=== PATIENT | female | born 1945 | race Caucasian/White ===

== ENCOUNTER → 2016-10-22 | Outpatient (CLI) | payer MEDICARE, BC ==
--- NOTE | 2016-10-22 12:46 | RADRPT ---
PROCEDURE: Limited x-ray of both lower extremities. CLINICAL INDICATION: Bilateral leg pain. TECHNIQUE: Single frontal view of both lower extremities was obtained from the hips to the calves. COMPARISON: Left knee radiographs dated 09/19/2016. FINDINGS: There are mild degenerative changes of both hips with osteophytes noted. There are moderate to negrita re degenerative changes of both knees with osteophytes, joint space narrowing, and deformity. Right is worse than left. IMPRESSION: 1. Mild degenerative changes of the hips. 2. Moderate to severe degenerative changes of both knees with right worse than left. RPTAT: QQ .Ricardo Osborn MD, MD Date Time Electronically viewed and signed by .Ricardo Osborn MD, MD on 10/22/2016 12:45 .R/
== END | disposition home or self-care (01) ==
LOC: HKI 10:58
PROVIDERS: ATTEND Orthopaedic Surgery
DX: Z01.818 Encounter for other preprocedural examination (principal); M17.11 Unilateral primary osteoarthritis, right knee; M25.561 Pain in right knee
CPT/HCPCS: 77073; 87081; G0463

== ENCOUNTER 2016-10-30 08:25 | Inpatient (IN) | payer MEDICARE, BC ==
[2016-10-29 12:45] VITALS: BMI 26.5
[2016-10-30] VITALS (21 sets, daily range): BP systolic 109–139; BP diastolic 62–89; PULSE 54–85; RESP 10–21; Ht 160 cm; Wt 70.0 kg
[~2016-10-30] VITALS: Ht 160 cm; Wt 70.0 kg
[~2016-10-30 08:25] MED LIST: ETOMIDATE 20 MG INJ ONE
[2016-10-30] MEDS ORDERED: BUPIVACAINE LIPOSOME/PF 266 MG/20 ML VIAL INFIL SCH (11:00)
[2016-10-30] MEDS ORDERED: oxyCODONE (CR) 10 MG TAB [oxyCONTIN] X1 DOSE PO ONE (11:00)
[2016-10-30] MEDS ORDERED: TRANEXAMIC ACID 700 MG in SOD CHLORIDE 0.9% 100 ML IVPB SCH (11:00)
[2016-10-30] MEDS ORDERED: traMADOL 50 MG TAB X 1 DOSE PO ONE (11:00)
[2016-10-30] MEDS ORDERED: CELECOXIB 400 MG PO X1 DOSE PO ONE (11:00)
[2016-10-30] MEDS ORDERED: LACTATED RINGER'S 1,000 ML IV SCH (11:00)
[2016-10-30] MEDS ORDERED: CEFAZOLIN 2GM/50 ML (PMX) 50 ML X1 BEFORE INCISION IVPB ONE (11:00)
[2016-10-30] MEDS ORDERED: EXPAREL NOTE (BUPIVICAINE LIPOSOMAL) XX SCH (11:00)
[2016-10-30] MEDS ORDERED: PAIN COCKTAIL-CEFUROXIME IRR SCH ×7 (11:00)
[2016-10-30] MEDS ORDERED: PREGABALIN 300 MG PO X1 PO ONE (11:00)
[2016-10-30] MEDS: PAIN COCKTAIL - VANCOMYCIN IRR SCH ×14 (12:00→15:08)
[2016-10-30] MEDS ORDERED: VANCOMYCIN 1 GM/NS 250 ML X1 BEFORE INCISION IVPB ONE (12:00)
[2016-10-30] MEDS ORDERED: ONDANSETRON 4 MG INJ ONE (12:26)
[2016-10-30] MEDS ORDERED: ROCURONIUM 50 MG INJ ONE (12:26)
[2016-10-30] MEDS ORDERED: NEOSTIGMINE 3 MG/3 ML SYRINGE ONE (12:26)
[2016-10-30] MEDS ORDERED: MIDAZOLAM 1 MG/ML 2 ML INJ ONE (12:26)
[2016-10-30] MEDS ORDERED: PROPOFOL 100 ML ONE (12:26)
[2016-10-30] MEDS ORDERED: LIDOCAINE 2% (SDV) 5 ML INJ ONE (12:26)
[2016-10-30] MEDS ORDERED: GLYCOPYRROLATE 1 MG INJ ONE (12:26)
[2016-10-30] MEDS ORDERED: DEXAMETHASONE 4 MG/ML 1 ML INJ ONE ×2 (12:26→14:36)
[2016-10-30] MEDS ORDERED: FENTAnyl 50 MCG/ML VIAL ONE (12:26)
[2016-10-30] MEDS ORDERED: OMEP40CA6 PO (12:35)
--- NOTE | 2016-10-30 13:11 | HPN ---
Date/Time of Note Date/Time of Note DATE: 10/30/16 TIME: 13:10 Interval H&P Admission Note Pt. seen H&P reviewed: No system changes No change from H&P on 10/28/16 by GIOVANA Roque MD Oct 30, 2016 13:11
[2016-10-30] MEDS: SOD CHLORIDE 0.9% IV ONE ×2 (13:27→16:18)
[2016-10-30] MEDS: TRANEXAMIC ACID IV ONE ×2 (13:27→16:18)
[2016-10-30] MEDS ORDERED: SODIUM CL BACTERIOSTATIC 30 ML INJ ONE (13:34)
[2016-10-30] MEDS ORDERED: POLYMYXIN B 500000 UNIT INJ ONE (13:34)
[2016-10-30] MEDS ORDERED: VANCOMYCIN 1 GM INJ ONE (13:35)
[2016-10-30] MEDS ORDERED: BACITRACIN 50000 UNITS INJ IRR ONE (14:22)
[2016-10-30] MEDS ORDERED: HYDROmorphONE (0.2 MG/ML) 10ML SYG IV PRN ×3 (14:30)
[2016-10-30] MEDS ORDERED: DIPHENHYDRAMINE 50 MG INJ IV PRN (14:30)
[2016-10-30] MEDS ORDERED: MEPERIDINE 25 MG INJ IV PRN (14:30)
[2016-10-30] MEDS ORDERED: ONDANSETRON 4 MG INJ IV PRN ×2 (14:30→16:00)
[2016-10-30] MEDS ORDERED: MIDAZOLAM 1 MG/ML 2 ML INJ IV PRN (14:30)
[2016-10-30] MEDS ORDERED: TRIMETHOBENZAMIDE 100 MG/ML VIAL IM PRN (14:30)
[2016-10-30] MEDS ORDERED: hydrALAzine 20 MG INJ IV PRN (14:30)
[2016-10-30] MEDS ORDERED: EPHEDrine SULFATE 50 MG/5 ML SYG IV PRN (14:30)
[2016-10-30] MEDS ORDERED: FENTAnyl 50 MCG/ML VIAL IV PRN ×3 (14:30)
[2016-10-30] MEDS ORDERED: LABETALOL HCL 20MG INJ IV PRN (14:30)
[2016-10-30] MEDS ORDERED: PHENYLephrine (100 MCG/ML) 5ML SYG ONE (14:35)
[2016-10-30] MEDS ORDERED: BACITRACIN 50000 UNITS INJ ONE (15:15)
[2016-10-30] MEDS: LACTATED RINGER'S 1,000 ML IV SCH ×2 (16:00→20:56)
[2016-10-30] MEDS ORDERED: NACL 0.9% 3 ML SYG IV SCH (16:00)
[2016-10-30] MEDS ORDERED: MAGNESIUM HYDROXIDE 30ML CUP PO PRN (16:00)
[2016-10-30] MEDS ORDERED: NA PHOSPHATE/BIPHOS 133 ML ENEMA PR PRN (16:00)
[2016-10-30] MEDS ORDERED: ASPIRIN (EC) 325 MG TAB PO ONE (16:00)
[2016-10-30] MEDS ORDERED: BISACODYL 10 MG SUPP PR PRN (16:00)
[2016-10-30] MEDS ORDERED: HYDROmorphONE 1 MG/ML SYG IV PRN (16:00)
[2016-10-30] MEDS ORDERED: DIPHENHYDRAMINE 25 MG CAP PO PRN (16:00)
[2016-10-30] MEDS ORDERED: oxyCODONE 5 MG TAB PO PRN ×2 (16:00)
--- NOTE | 2016-10-30 16:07 | PN ---
Date/Time of Note Date/Time of Note DATE: 10/30/16 TIME: 16:06 Assessment/Plan Lines/Catheters IV Catheter Type (from Nrsg): Peripheral IV Assessment/Plan Assessment/Plan Stable in PACU s/p right TKA -cont abx -pain meds -ASA/SCDs for DVT prophylaxis -OOB with PT -monitor drain -check AM labs -d/c vee in AM XR of the right knee is pending at this time Subjective 24 Hr Interval Summary Stable in PACU. Moving all extremities. Denies pain. Exam/Review of Systems Vital Signs Vitals Vital Signs Date Time Temp Pulse Resp B/P Pulse Ox O2 Delivery O2 Flow Rate FiO2 10/30/16 11:37 97.6 80 18 117/89 98 Room Air Intake and Output 10/29/16 10/29/16 10/30/16 15:00 23:00 07:00 Intake Total 0 ml Balance 0 ml Exam Free Text/Dictation Dressing dry Incision clean, dry, and intact without redness or drainage Thigh soft 5/5 Quadriceps, Tibialis Anterior, EHL, Gastroc, Soleus, Peroneals Normal sensation Palpable DT/PT, CR <2 sec No distal edema EDY ALMANZA PA-C Oct 30, 2016 16:07
--- NOTE | 2016-10-30 16:18 | OPPN ---
Date/Time of Note Date/Time of Note DATE: 10/30/16 TIME: 16:16 Operative/Procedure Note Dictation # [id number] Pre-Operative Diagnosis Right Knee OA Post-Operative Diagnosis Same Procedure Right TKA Surgeon: GIOVANA FERGUSON MD Senior Quality Methods Specialist: EDY ALMANZA PA-C Anesthesiologist: Mp Ashby M.D. Findings Severe OA Blood Usage/Administration None Implants/Grafts Depuy Attune TKA Estimated blood loss: 50 - 100 ml's Drains Hemovac x 1 Specimens Bone and soft tissue Complications: None Anesthesia type: spinal GIOVANA FERGUSON MD Oct 30, 2016 16:18
[2016-10-30 16:33] LABS: ADD UMIC YES; URINE BILIRUBIN (Dip) NEGATIVE (NEGATIVE); URINE BLOOD (Dip) 1+ (NEGATIVE); URINE COLOR YELLOW (YELLOW); URINE GLUCOSE (Dip) NEGATIVE (NEGATIVE); URINE KETONES (Dip) NEGATIVE (NEGATIVE); URINE LEUKOCYTE ESTERASE (Dip) TRACE (NEGATIVE); URINE NITRITE (Dip) NEGATIVE (NEGATIVE); URINE TOTAL PROTEIN (Dip) 2+ (NEGATIVE); URINE UROBILINOGEN (Dip) 2.0 E.U./dL (0.1-1.0)
[2016-10-30 16:57] LABS: BACTERIA,URINE RARE; SQUAMOUS EPITHELIAL CELL,UR FEW; URINE RBCS 0-2 /HPF (0)
--- NOTE | 2016-10-30 17:04 | RADRPT ---
PROCEDURE: XR right knee. CLINICAL INDICATION: Knee pain. TECHNIQUE: AP and lateral views are available for review. COMPARISON: 09/19/2016 FINDINGS: There is a postoperative total knee replacement. There is no evidence of loosening of the prosthesis . The osseous structures are normal in mineralization, architecture and alignment No acute fracture or dislocation is seen.No osseous lesions are identified. There are postoperative soft tissue landaverde es. The drain is in place. . IMPRESSION: Unremarkable postoperative total knee replacement. Postoperative soft tissue changes RPTAT: HGDB .Ronny Pulido MD, MD Date Time Electronically viewed and signed by .Ronny Pulido MD, on 10/30/2016 17:04 .B/
--- NOTE | 2016-10-30 17:04 | OPR ---
DATE OF OPERATION: 10/30/2016 PREOPERATIVE DIAGNOSIS: Right knee osteoarthritis. POSTOPERATIVE DIAGNOSIS: Right knee osteoarthritis. OPERATION PERFORMED: Right total knee arthroplasty. SURGEON: Giovana Torres MD CAR RECORD CLERK: DANIEL Munroe COMPONENTS USED: DePuy Attune size 4 femoral component, size 3 tibia baseplate , 6 mm polyethylene insert and a 35 patellar button. ANESTHESIA: Spinal plus general endotracheal intubation plus periarticular injection. ANESTHESIOLOGIST: Dr. Ashby. TOURNIQUET TIME: 65 minutes. ESTIMATED BLOOD LOSS: 50 mL. INTRAVENOUS FLUIDS: 2500 mL crystalloid. SPECIMENS: Bone and soft tissue. DRAINS: Hemovac x1. COMPLICATIONS: None. DISPOSITION: The patient tolerated the procedure well and was taken to the recovery room in stable condition. INDICATIONS: The patient is a 71-year-old woman who has had progressive worsening pain in the right knee with radiographic evidence of severe osteoarthritis. She has failed nonsurgical means of treatment to control her pain including activity modifications, pain medications, intra-articular injections and ambulatory assist devices. Despite these measures, she has had worsening pain and I felt she would benefit from a total knee arthroplasty. A median parapatellar approach was made in parapatellar arthrotomy. Valgus cut was 6 degrees. Extension gap was checked and accommodated the 6 mm spacer block. The flexion gap was checked and it accommodated the 6 mm spacer block. The patella was cut from 21 mm down to 12 mm and sized. The remainder of was placed in position. The risks, benefits, and alternatives of the procedure were explained in detail to the patient. I explained the risks of the surgery to include but not be limited to, bleeding and possible need for blood transfusion; infection; pain; stiffness; neurovascular injury with possible numbness, weakness, and/or paralysis anywhere from the knee down to the toes; fracture; instability; dislocation; wear and/or loosening of the prosthesis and possible need for future revision; blood clots; pulmonary embolism; and anesthetic complications such as heart attack, stroke, GI bleed, pneumonia, and/or . Ample time was allowed for the patient to ask questions, all of which were addressed and answered. The patient understood the risks involved and wished to proceed. Informed consent was signed prior to the procedure. PROCEDURE: The patient's right knee was initialed with a marking pen in the preoperative area to identify the correct operative site. The patient was brought to the operating room and [facility] operating table where a spinal anesthetic was administered. The patient was then anesthetized and intubated. A Mancera catheter was placed. A timeout was performed to confirm that the right leg was the correct operative site. The patient was given 2 g of Ancef within one hour prior to the procedure. A tourniquet was placed on the operative proximal thigh. The operative knee and lower extremity were prepped and draped in the usual sterile fashion. The operative lower extremity was elevated and exsanguinated with an Esmarch tourniquet. The proximal thigh tourniquet was inflated to 300 mmHg. The knee was flexed. A midline incision was made and carried down through the subcutaneous tissue and fat with sharp dissection. Limited medial and lateral flaps were raised. A right approach was performed. Synovial fluid was normal in color and consistency. The patella was everted and the knee flexed. There were severe tricompartmental osteoarthritic changes noted. A medial release was performed at the joint line to the midcoronal plane. The ACL and PCL and remnants of the menisci were excised. The stepped drill was used to open up the femoral canal which was irrigated and sucked dry. The intramedullary guide colleen was passed up the femur, and the distal cutting block was pinned into place for a 6 degree valgus cut, taking 10 mm of bone off distally. The oscillating saw was used to make the cut. The tibia was subluxed anteriorly. The tibial cutoff jig was placed over the center of the talus distally and over the junction of the medial and middle third of the tibial tubercle proximally. The guide was pinned into place and the oscillating saw was used to make the cut. The tibia was sized. The extension gap was checked and accommodated a 6 mm spacer block with the knee in full extension. There was no varus or valgus instability. At this point, the femur was sized with the posterior referencing guide. Two holes were drilled in 3 degrees of external rotation. The two holes were in line with the transepicondylar axis, perpendicular to [place]'s line, and in line with the tibial cutoff jig brought up with the knee flexed 90 degrees and tensed with 2 lamina spreaders, suggesting the femoral rotation was correct. The four-in-one cutting block was pinned into place. The anterior and posterior cuts and chamfer cuts were made with the oscillating saw. The flexion gap was checked and accommodated the 6 mm spacer block at 90 degrees. There was no varus or valgus instability, suggesting the flexion and extension gaps were now equal. The central box was cut out on the femur. The tibia was drilled and punched in proper rotation. Trial components were placed into position with a trial insert. The patella was cut down to 12 mm and sized. Three holes were drilled and the trial button placed in position. With all the trials now in place, the knee was taken through range of motion and came to full extension as evidenced by the fact that with the foot on my abdomen and axial loading, there was no tendency for the knee to flex. The knee was able to be flexed to 125 degrees with good patellar tracking with no lateral tilt or subluxation. At this point, I was satisfied with the overall range of motion, stability, and patellar tracking. The trials were removed. The real components were opened. Two bags of cement were mixed, one with and one without premixed antibiotic. The knee was irrigated with antibiotic saline and sucked dry. Once the cement was in a doughy stage, the real components were cemented into place. The knee was held in full extension, and the patellar component was held with a patellar clamp. All excess cement was removed with curettes. As the cement was hardening, the synovial/capsular layer was infiltrated with a mixture of 150 mg of 0.5% Bupivacaine, 8 mg of Duramorph, 300 mcg of epinephrine, 30 mg of Toradol, 100 mcg of clonidine, 750 mg of cefuroxime and 86 mL of normal saline, followed by an injection of 266 mg of liposomal Bupivacaine. A Hemovac drain was placed in the deep portion of the wound and brought out the anterolateral thigh. Once the cement was completely hardened, the trial liner was removed, and the real insert was opened. The tourniquet was let down, and there was good hemostasis. The knee was then irrigated with a mixture of betadine/saline and then antibiotic saline with pulsatile lavage. The real insert was impacted into the tibia and reduced onto to the femur. The arthrotomy was closed with a few interrupted #1 Ethibond in a figure-of- eight fashion, and then closed in a watertight fashion with a running #2 Stratafix suture. Knee flexion was checked against gravity and came to 125 degrees. The subcutaneous layer was irrigated and closed with 2-0 Statafix, and then 3-0 Statafix and then Prineo Dermabond on the skin. The wound was covered with an occlusive dressing, and secured with cast padding and a bias dressing. The drain was secured with 3-0 nylon. The sponge and needle counts were correct at the end of the case. The patient was then awakened, extubated, and taken to the recovery room in stable condition. Dictated By: GIOVANA REDD/CHRIST Conf#: [id number] DID#: [id number]
[2016-10-30 17:08] LABS: HEMATOCRIT 38.7 % (37.0-47.0); HEMOGLOBIN 12.9 g/dl (12.0-16.0)
[2016-10-30 17:20] LABS: CALCIUM 9.2 mg/dl (8.4-10.2); CREATININE 0.79 mg/dl (0.44-1.00); POTASSIUM 3.9 mmol/L (3.5-5.1)
[2016-10-30] MEDS: PANTOPRAZOLE (EC) 40 MG TAB PO SCH (17:58)
[2016-10-30] MEDS: traMADol 50 MG TAB PO SCH ×2 (17:58→18:00)
[2016-10-30] MEDS: ACETAMINOPHEN 1000MG/100ML IV 100 ML IVPB SCH (17:58)
--- NOTE | 2016-10-30 18:29 | CONS ---
DATE OF ADMISSION: 10/30/2016 DATE OF CONSULTATION: POSTOP MEDICAL CONSULTATIVE NOTE Dear Dr. Torres, Thank you very much for allowing me to evaluate the above patient who just underwent right total kne e arthroplasty. HISTORICAL EVENTS: As you well know, this patient has had progressive disabling pain involving her right knee and elected to proceed with surgery. In recovery, she is comfortable without cough, whee zing, shortness of breath, nausea, vomiting, abdominal or chest pain. PAST MEDICAL HISTORY INCLUDES: 1. Osteoarthritis. 2. Hyperlipidemia. 3. Hypertension. 4. Acquired lymphedema related to breast cancer. 5. Left rotator cuff surgery. 6. Left knee arthroscopic surgery. SOCIAL HISTORY: Former smoker, does drink alcohol. FAMILY HISTORY: Positive for brain cancer, rheumatoid arthritis. MEDICATIONS: 1. Vitamin D3 1000 per day. 2. Zetia 10 mg per day. 3. Prilosec 20 mg per day. 4. Singulair 10 mg per day. 5. Mirtazapine 15 mg at bedtime. 6. Fenofibrate 135 mg per day. 7. Crestor 40 mg per day. 8. CoQ10 300 mg per day. PHYSICAL EXAMINATION: GENERAL: [place] female in no acute distress. VITAL SIGNS: Blood pressure 118/80, pulse 70, respirations 20, she was afebrile. EYES: Extraocular muscles were full. NOSE, MOUTH AND THROAT: Normal. NECK: Supple. There was no jugular venous distention, thyroid enlargement or adenopathy. LUNGS: Clear. HEART: Rhythm regular. ABDOMEN: Nontender. Liver and spleen were not palpable. No masses or tenderness were noted. EXTREMITIES: No edema. Calves nontender. IMPRESSION: 1. Stable postoperative right knee replacement. 2. History of hypertension. We will monitor her blood pressure throughout and begin antihypertensi ve therapy if needed. 3. Hyperlipidemia. We will continue her statin. 4. We will evaluate her daily for signs and symptoms of thromboembolic disease despite appropriate DVT prophylaxis. Dictated By: OLI ANGEL/CHRIST Conf#: [id number] DID#: [id number]
[2016-10-30] MEDS: DOCUSATE SODIUM 100 MG CAP PO SCH (20:55)
[2016-10-30] MEDS: ATORVASTATIN 40 MG TAB PO SCH (20:55)
[2016-10-30] MEDS: VANCOMYCIN 1 GM (PMX) 250 ML IVPB SCH (20:55)
[2016-10-30] MEDS: PREGABALIN 25 MG CAP PO SCH (20:55)
[2016-10-30] MEDS: MIRTAZAPINE 15 MG TAB PO SCH (20:55)
[2016-10-31] MEDS: ACETAMINOPHEN 1000MG/100ML IV 100 ML IVPB SCH ×3 (00:07→12:08)
[2016-10-31] MEDS: traMADol 50 MG TAB PO SCH ×5 (00:08→23:30)
[2016-10-31 00:33] VITALS: BP 119/77; RESP 18
[2016-10-31 05:15] LABS: HEMATOCRIT 31.9 % (37.0-47.0); HEMOGLOBIN 10.9 g/dl (12.0-16.0)
[2016-10-31] MEDS: PANTOPRAZOLE (EC) 40 MG TAB PO SCH ×2 (05:30→18:36)
[2016-10-31 05:32] LABS: POTASSIUM 3.9 mmol/L (3.5-5.1)
[2016-10-31 05:35] LABS: CREATININE 0.65 mg/dl (0.44-1.00)
[2016-10-31 05:36] LABS: CALCIUM 8.7 mg/dl (8.4-10.2)
[2016-10-31 06:56] LABS: ADD UMIC NO; URINE BILIRUBIN (Dip) NEGATIVE (NEGATIVE); URINE BLOOD (Dip) NEGATIVE (NEGATIVE); URINE COLOR LT. YELLOW (YELLOW); URINE GLUCOSE (Dip) NEGATIVE (NEGATIVE); URINE KETONES (Dip) NEGATIVE (NEGATIVE); URINE LEUKOCYTE ESTERASE (Dip) NEGATIVE (NEGATIVE); URINE NITRITE (Dip) NEGATIVE (NEGATIVE); URINE TOTAL PROTEIN (Dip) NEGATIVE (NEGATIVE); URINE UROBILINOGEN (Dip) 1.0 E.U./dL (0.1-1.0)
[2016-10-31 07:19] VITALS: BP 125/77; RESP 18
--- NOTE | 2016-10-31 08:47 | CONS ---
Date/Time of Note Date/Time of Note DATE: 10/31/16 TIME: 08:46 Assessment/Plan Assessment/Plan Additional Assessment/Plan 1. Stable postoperative right knee replacement. 2. Hx of HBP, controlled 3. Hyperlipidemia, statin to be continued Consultation Date/Type/Reason Admit Date/Time Oct 30, 2016 at 10:50 Initial Consult Date Detailed Summary Respiratory: No shortness of breath Cardiovascular: No chest pain Gastrointestinal: no complaints Genitourinary: no complaints Musculoskeletal: bone/joint pain (mild right knee pain) Exam/Review of Systems Vital Signs Vitals Vital Signs Date Time Temp Pulse Resp B/P Pulse Ox O2 Delivery O2 Flow Rate FiO2 10/31/16 07:19 97.9 65 18 125/77 98 10/30/16 20:10 Nasal Cannula 2.0 Intake and Output 10/30/16 10/30/16 10/31/16 15:00 23:00 07:00 Intake Total 2700 ml 600 ml Output Total 580 ml 2150 ml Balance 2120 ml -1550 ml Exam Neck: No jvd Respiratory: clear to auscultation Cardiovascular: regular rate and rhythm Gastrointestinal: soft Extremities: No edema (and no calf tend) Results Result Diagram: 10/31/16 0438 10/31/16 0438 Results 24 hrs Laboratory Tests Test 10/30/16 16:20 10/30/16 16:45 10/31/16 04:30 10/31/16 04:38 Urine Bacteria RARE Urine Bilirubin NEGATIVE NEGATIVE Urine Clarity CLEAR CLEAR Urine Color YELLOW LT. YELLOW Urine Glucose NEGATIVE NEGATIVE Urine Hemoglobin 1+ H NEGATIVE Urine Ketones NEGATIVE NEGATIVE Urine Leukocyte Esterase TRACE H NEGATIVE Urine Microscopic RBC 0-2 Urine Microscopic WBC 10-25 Urine Nitrite NEGATIVE NEGATIVE Urine Specific [place] 1.020 1.020 Urine Squamous Epithelial Cells FEW Urine Total Protein 2+ H NEGATIVE Urine Urobilinogen 2.0 E.U./dL H 1.0 E.U./dL Urine pH 6.0 6.0 Anion Gap 15 14 Blood Urea Nitrogen 9 9 Calcium Level 9.2 8.7 Carbon Dioxide Level 25 24 Chloride Level 110 105 Creatinine 0.79 0.65 Glucose Level 88 115 Hematocrit 38.7 31.9 L Hemoglobin 12.9 10.9 L Potassium Level 3.9 3.9 Sodium Level 146 H 139 Medications Medications Current Medications Miscellaneous Information 1 ea 1 ea NOTE XX ; Start 10/30/16 at 11:00; Stop 11/02 at 10:59 Lactated Ringer's (Lr) 1,000 ml @ 125 mls/hr Q8H IV Last administered on 20:56; Admin Dose 125 MLS/HR; Start 10/30/16 at 16:00 Celecoxib 200 mg 200 mg DAILY PO ; Start 10/31/16 at 09:00 Acetaminophen (Ofirmev 1000mg/ 100ml Iv) 100 ml @ 400 mls/hr Q6 IVPB Last administered on 10/31/16 05:30; Admin Dose 400 MLS/HR; Start 10/30/16 at 18:00; Stop 10/31/16 at 17:59 Tramadol HCl (Ultram) 50 mg Q6 PO Last administered on 10/31/16 05:30; Admin Dose 50 MG; Start 10/30/16 at 12:00; Stop 11/02/16 at 11:59 Oxycodone HCl (Roxicodone) 5 mg Q4H PRN PO PAIN LEVEL 1-3; Start 10/30/16 at 16 :00 Oxycodone HCl (Roxicodone) 10 mg Q4H PRN PO PAIN LEVEL 4-7; Start 10/30/16 at 16:00 Hydromorphone HCl 1 mg 1 mg Q3H PRN IV PAIN LEVEL 8-10; Start 10/30/16 at 16:00 Vancomycin HCl (Vancocin) 250 ml @ 125 mls/hr Q12 IVPB Last administered on 20:55; Admin Dose 125 MLS/HR; Start 10/30/16 at 21:00; Stop 10/31/16 at 10:59 Ondansetron HCl (Zofran Inj) 4 mg Q6H PRN IV NAUSEA AND/OR VOMITING; Start at 16:00 Bisacodyl (Dulcolax Supp) 10 mg Q12H PRN GA CONSTIPATION; Start 10/30/16 at 16: 00 Magnesium Hydroxide (Milk Of Mag) 30 ml BID PRN PO CONSTIPATION; Start at 16:00 Sodium Biphosphate/ Sodium Phosphate (Fleet Enema) 133 ml DAILY PRN [place] CONSTIPATION; Start 10/30/16 at 16:00 Docusate Sodium (Colace) 100 mg BID PO Last administered on 10/30/16 20:55; Admin Dose 100 MG; Start 10/30/16 at 21:00 Diphenhydramine HCl (Benadryl) 25 mg Q6H PRN PO PRURITUS; Start 10/30/16 at 16: 00 Aspirin (Ecotrin) 325 mg BID PO ; Start 10/31/16 at 09:00 Pantoprazole (Protonix Tab) 40 mg BID@,18 PO Last administered on 10/31/16 05 :30; Admin Dose 40 MG; Start 10/30/16 at 18:00 Pregabalin (Lyrica) 50 mg BID PO Last administered on 10/30/16 20:55; Admin Dose 50 MG; Start 10/30/16 at 21:00 Atorvastatin Calcium (Lipitor) 40 mg HS PO Last administered on 10/30/16 20:55 ; Admin Dose 40 MG; Start 10/30/16 at 21:00 Mirtazapine (Remeron) 15 mg HS PO Last administered on 10/30/16 20:55; Admin Dose 15 MG; Start 10/30/16 at 21:00 Fenofibrate (Tricor) 145 mg DAILY PO ; Start 10/31/16 at 09:00 EZETIMIBE (Zetia) 10 mg DAILY PO ; Start 10/31/16 at 09:00 OLI ALCANTAR MD Oct 31, 2016 08:47
--- NOTE | 2016-10-31 08:59 | PN ---
Date/Time of Note Date/Time of Note DATE: 10/31/16 TIME: 08:58 Assessment/Plan Lines/Catheters IV Catheter Type (from Nrsg): Peripheral IV Mancera in Place (from Nrsg): Yes Assessment/Plan Assessment/Plan Stable POD #1 s/p right TKA -d/c abx -pain meds -ASA/SCDs for DVT prophylaxis -OOB with PT -drain removed -check AM labs -encourage incentive spirometry -d/c planning. Will likely go home tomorrow or saturday Subjective 24 Hr Interval Summary Doing well. No acute overnight events. Denies significant pain. VSS, afebrile. Did not start PT yet. Exam/Review of Systems Vital Signs Vitals Vital Signs Date Time Temp Pulse Resp B/P Pulse Ox O2 Delivery O2 Flow Rate FiO2 10/31/16 07:19 97.9 65 18 125/77 98 10/30/16 20:10 Nasal Cannula 2.0 Intake and Output 10/30/16 10/30/16 10/31/16 15:00 23:00 07:00 Intake Total 2700 ml 600 ml Output Total 580 ml 2150 ml Balance 2120 ml -1550 ml Exam Free Text/Dictation Hemovac: 330cc Dressing dry Incision clean, dry, and intact without redness or drainage Thigh soft 5/5 Quadriceps, Tibialis Anterior, EHL, Gastroc, Soleus, Peroneals Normal sensation Palpable DT/PT, CR <2 sec No distal edema Results Result Diagram: 10/31/168 10/31/16 0438 EDY ALMANZA PA-C Oct 31, 2016 08:59
[2016-10-31] MEDS: VANCOMYCIN 1 GM (PMX) 250 ML IVPB SCH (09:54)
[2016-10-31] MEDS: CELECOXIB 200 MG CAP PO SCH (09:55)
[2016-10-31] MEDS: DOCUSATE SODIUM 100 MG CAP PO SCH ×2 (09:55→20:13)
[2016-10-31] MEDS: FENOFIBRATE 145 MG TAB PO SCH (09:56)
[2016-10-31] MEDS: PREGABALIN 25 MG CAP PO SCH ×2 (09:56→20:14)
[2016-10-31] MEDS: ASPIRIN (EC) 325 MG TAB PO SCH ×2 (09:56→20:13)
[2016-10-31] MEDS: EZETIMIBE 10 MG TAB PO SCH (09:56)
[2016-10-31] MEDS: LACTATED RINGER'S 1,000 ML IV SCH ×4 (10:00→23:26)
--- NOTE | 2016-10-31 15:37 | PDOCDIS ---
Discharge Instructions DIAGNOSIS Discharge Diagnosis: s/p right TKA CONDITION Patient Condition: Good HOME CARE INSTRUCTIONS: Diet Instructions: RegularSpecial Diet: clear liquid ACTIVITY: Activity Restrictions: Slowly Increase Activity Rest between Activity Avoid heavy lifting Do not operate Machinery Do not operate Power Tool Avoid Heavy Housework FOLLOW UP/APPOINTMENTS Appointments follow up with Dr. Torres in the office on 11/09/16 OTHER ORDERS: Other Orders: S/P TKA Physical Therapy: Three times per week at home x 2 weeks WB STATUS: WBAT 1. Strengthening exercises for both upper and un-operated lower extremities. 2. Gait training with front wheeled walker 3. Active range of motion exercises to operative knee. 4. When not working on knee range of motion exercises, distal towel roll under operative ankle/distal calf to promote full extension. 5. DO NOT PUT ANYTHING BEHIND OPERATIVE KNEE!!! 6. Quadriceps and hamstring strengthening. 7. May switch to cane in contra lateral hand 6 weeks after surgery. 8. Physical Therapy can open case if nursing is not available. 9. Use Ice Machine as instructed from date of surgery while at rest 3X/day. 10. Patient requires mobile SCDs to reduce risk of developing DVT following TKA. Patient will use the mobile SCDs for 30 days postoperatively. Bathing assistance by home health aide twice weekly if Medicare patient. Occupational Therapy: Evaluation for assistive devices and ADL training. Wound Care: Keep incision dry & covered with Tegaderm until first visit with Dr. Torres Anticoagulation Orders: Enteric Coated Aspirin 325 mg po bid x 6 weeks from date of surgery Follow-up:Call for an appointment with Dr. Torres in 1 week after discharged from hospital at DME Orders: LAUREN, 3-in-1 Commode, Polar ice machine, Mobile SCDs EDY ALMANZA PA-C Oct 31, 2016 15:37
[2016-10-31] MEDS ORDERED: LYRI25 PO (15:38)
[2016-10-31] MEDS ORDERED: TRAM50TA2 PO (15:38)
[2016-10-31] MEDS ORDERED: ASPI325T32 PO (15:38)
[2016-10-31] MEDS ORDERED: HYDR-905 PO (15:38)
[2016-10-31 19:00] VITALS: BP 92/55; RESP 18
[2016-10-31] MEDS: ATORVASTATIN 40 MG TAB PO SCH (20:13)
[2016-10-31] MEDS: MIRTAZAPINE 15 MG TAB PO SCH (20:14)
[2016-10-31 23:52] VITALS: BP 99/62; RESP 18
[2016-11-01 05:19] LABS: HEMATOCRIT 30.6 % (37.0-47.0); HEMOGLOBIN 10.4 g/dl (12.0-16.0)
[2016-11-01] MEDS: traMADol 50 MG TAB PO SCH ×3 (05:52→17:27)
[2016-11-01] MEDS: PANTOPRAZOLE (EC) 40 MG TAB PO SCH ×2 (05:52→17:27)
[2016-11-01] MEDS: LACTATED RINGER'S 1,000 ML IV SCH ×2 (05:54→16:00)
[2016-11-01 06:10] LABS: POTASSIUM 3.8 mmol/L (3.5-5.1)
[2016-11-01 06:12] LABS: CREATININE 0.73 mg/dl (0.44-1.00)
[2016-11-01 06:13] LABS: CALCIUM 8.9 mg/dl (8.4-10.2)
[2016-11-01 08:30] VITALS: BP 125/86; PULSE 73; RESP 20
[2016-11-01] MEDS: PREGABALIN 25 MG CAP PO SCH ×2 (08:42→20:17)
[2016-11-01] MEDS: CELECOXIB 200 MG CAP PO SCH (08:42)
[2016-11-01] MEDS: DOCUSATE SODIUM 100 MG CAP PO SCH ×2 (08:42→20:17)
[2016-11-01] MEDS: ASPIRIN (EC) 325 MG TAB PO SCH ×2 (08:42→20:17)
[2016-11-01] MEDS: FENOFIBRATE 145 MG TAB PO SCH (08:43)
[2016-11-01] MEDS: EZETIMIBE 10 MG TAB PO SCH (08:43)
--- NOTE | 2016-11-01 11:03 | PN ---
Date/Time of Note Date/Time of Note DATE: 11/01/16 TIME: 11:01 Assessment/Plan Lines/Catheters IV Catheter Type (from Nrsg): Saline Lock Mancera in Place (from Nrsg): Yes Assessment/Plan Assessment/Plan Stable POD #2, s/p right TKA -pain meds -ASA/SCDs -OOB with PT -check AM labs -dressing changed -d/c planning. Will plan to d/c home tomorrow Subjective 24 Hr Interval Summary Doing well. No acute overnight events. H&H stable. Pain improving. Progressing with PT. Would like to go home tomorrow. Exam/Review of Systems Vital Signs Vitals Vital Signs Date Time Temp Pulse Resp B/P Pulse Ox O2 Delivery O2 Flow Rate FiO2 11/01/16 08:30 97.7 73 20 125/86 94 Room Air 10/30/16 20:10 2.0 Intake and Output 10/31/16 10/31/16 11/01/16 15:00 23:00 07:00 Intake Total 1575 ml 1100 ml 1000 ml Output Total 1100 ml Balance 1575 ml 1100 ml -100 ml Exam Free Text/Dictation Dressing dry Incision clean, dry, and intact without redness or drainage Thigh soft 5/5 Quadriceps, Tibialis Anterior, EHL, Gastroc, Soleus, Peroneals Normal sensation Palpable DT/PT, CR <2 sec No distal edema Results Result Diagram: 11/01/165 11/01/16 0445 EDY ALMANZA PA-C Nov 01, 2016 11:03
--- NOTE | 2016-11-01 11:05 | CONS ---
Date/Time of Note Date/Time of Note DATE: 11/01/16 TIME: 11:04 Assessment/Plan Assessment/Plan Additional Assessment/Plan 1. Stable postoperative right knee replacement. 2. Hx of HBP, controlled 3. Hyperlipidemia, statin to be continued Consultation Date/Type/Reason Admit Date/Time Oct 30, 2016 at 10:50 Detailed Summary Respiratory: No cough, No shortness of breath Cardiovascular: No chest pain Gastrointestinal: no complaints Genitourinary: no complaints Musculoskeletal: bone/joint pain (mild right knee pain) Exam/Review of Systems Vital Signs Vitals Vital Signs Date Time Temp Pulse Resp B/P Pulse Ox O2 Delivery O2 Flow Rate FiO2 11/01/16 08:30 97.7 73 20 125/86 94 Room Air 10/30/16 20:10 2.0 Intake and Output 10/31/16 10/31/16 11/01/16 15:00 23:00 07:00 Intake Total 1575 ml 1100 ml 1000 ml Output Total 1100 ml Balance 1575 ml 1100 ml -100 ml Exam Neck: No jvd Respiratory: clear to auscultation Cardiovascular: regular rate and rhythm Gastrointestinal: soft Extremities: No edema (and no calf tend) Results Result Diagram: 11/01/16 0445 11/01/16 0445 Results 24 hrs Laboratory Tests Test 11/01/16 04:45 Anion Gap 13 Blood Urea Nitrogen 12 Calcium Level 8.9 Carbon Dioxide Level 27 Chloride Level 106 Creatinine 0.73 Glucose Level 87 Hematocrit 30.6 L Hemoglobin 10.4 L Potassium Level 3.8 Sodium Level 142 Medications Medications Current Medications Miscellaneous Information 1 ea 1 ea NOTE XX ; Start 10/30/16 at 11:00; Stop 11/02 at 10:59 Lactated Ringer's (Lr) 1,000 ml @ 125 mls/hr Q8H IV Last administered on 10:00; Admin Dose 125 MLS/HR; Start 10/30/16 at 16:00 Celecoxib (Celebrex) 200 mg DAILY PO Last administered on 11/01/16 08:42; Admin Dose 200 MG; Start 10/31/16 at 09:00 Tramadol HCl (Ultram) 50 mg Q6 PO Last administered on 11/01/16 05:52; Admin Dose 50 MG; Start 10/30/16 at 12:00; Stop 11/02/16 at 11:59 Oxycodone HCl (Roxicodone) 5 mg Q4H PRN PO PAIN LEVEL 1-3; Start 10/30/16 at 16 :00 Oxycodone HCl (Roxicodone) 10 mg Q4H PRN PO PAIN LEVEL 4-7; Start 10/30/16 at 16:00 Hydromorphone HCl (Dilaudid) 1 mg Q3H PRN IV PAIN LEVEL 8-10; Start 10/30/16 at 16:00 Ondansetron HCl (Zofran Inj) 4 mg Q6H PRN IV NAUSEA AND/OR VOMITING; Start at 16:00 Bisacodyl (Dulcolax Supp) [address] CONSTIPATION; Start 10/30/16 at 16: 00 Magnesium Hydroxide (Milk Of Mag) 30 ml BID PRN PO CONSTIPATION; Start at 16:00 Sodium Biphosphate/ Sodium Phosphate (Fleet Enema) [address] CONSTIPATION; Start 10/30/16 at 16:00 Docusate Sodium (Colace) 100 mg BID PO Last administered on 11/01/16 08:42; Admin Dose 100 MG; Start 10/30/16 at 21:00 Diphenhydramine HCl (Benadryl) 25 mg Q6H PRN PO PRURITUS; Start 10/30/16 at 16: 00 Aspirin (Ecotrin) 325 mg BID PO Last administered on 11/01/16 08:42; Admin Dose 325 MG; Start 10/31/16 at 09:00 Pantoprazole (Protonix Tab) 40 mg BID@,18 PO Last administered on 11/01/16 05 :52; Admin Dose 40 MG; Start 10/30/16 at 18:00 Pregabalin (Lyrica) 50 mg BID PO Last administered on 11/01/16 08:42; Admin Dose 50 MG; Start 10/30/16 at 21:00 Atorvastatin Calcium (Lipitor) 40 mg HS PO Last administered on 10/31/16 20:13 ; Admin Dose 40 MG; Start 10/30/16 at 21:00 Mirtazapine (Remeron) 15 mg HS PO Last administered on 10/31/16 20:14; Admin Dose 15 MG; Start 10/30/16 at 21:00 Fenofibrate (Tricor) 145 mg DAILY PO Last administered on 11/01/16 08:43; Admin Dose 145 MG; Start 10/31/16 at 09:00 EZETIMIBE (Zetia) 10 mg DAILY PO Last administered on 11/01/16 08:43; Admin Dose 10 MG; Start 10/31/16 at 09:00 OLI ALCANTAR MD Nov 01, 2016 11:05
[2016-11-01 19:28] VITALS: BP 109/68; RESP 19
[2016-11-01] MEDS: ATORVASTATIN 40 MG TAB PO SCH (20:17)
[2016-11-01] MEDS: MIRTAZAPINE 15 MG TAB PO SCH (20:17)
[2016-11-02] MEDS: traMADol 50 MG TAB PO SCH ×2 (00:09→06:19)
[2016-11-02 06:05] LABS: HEMATOCRIT 32.6 % (37.0-47.0)
[2016-11-02] MEDS: PANTOPRAZOLE (EC) 40 MG TAB PO SCH (06:19)
[2016-11-02 06:24] LABS: POTASSIUM 3.9 mmol/L (3.5-5.1)
[2016-11-02 06:27] LABS: CREATININE 0.7 mg/dl (0.44-1.00)
[2016-11-02 06:28] LABS: CALCIUM 9.1 mg/dl (8.4-10.2)
[2016-11-02 07:50] VITALS: BP 128/82; RESP 19
[2016-11-02] MEDS: LACTATED RINGER'S 1,000 ML IV SCH ×2 (08:00)
--- NOTE | 2016-11-02 08:25 | CONS ---
Date/Time of Note Date/Time of Note DATE: 11/02/16 TIME: 08:24 Assessment/Plan Assessment/Plan Additional Assessment/Plan 1. Stable post op right knee replacemetn 2. HBP, controlled 3. Can dc per ortho and PT Consultation Date/Type/Reason Admit Date/Time Oct 30, 2016 at 10:50 Detailed Summary Respiratory: No cough, No shortness of breath Cardiovascular: No chest pain Gastrointestinal: no complaints Genitourinary: no complaints Musculoskeletal: bone/joint pain (mild right knee discomfort) Exam/Review of Systems Vital Signs Vitals Vital Signs Date Time Temp Pulse Resp B/P Pulse Ox O2 Delivery O2 Flow Rate FiO2 11/02/16 07:50 98.2 84 19 128/82 92 11/01/16 08:30 Room Air 10/30/16 20:10 2.0 Intake and Output 11/01/16 11/01/16 11/02/16 15:00 23:00 07:00 Intake Total 780 ml 800 ml Balance 780 ml 800 ml Exam Neck: No jvd Respiratory: clear to auscultation Cardiovascular: regular rate and rhythm Gastrointestinal: soft Extremities: No edema (and no calf tend) Results Result Diagram: 11/02/16 0450 11/02/16 0450 Results 24 hrs Laboratory Tests Test 11/02/16 04:50 Anion Gap 12 Blood Urea Nitrogen 12 Calcium Level 9.1 Carbon Dioxide Level 28 Chloride Level 103 Creatinine 0.70 Glucose Level 96 Hematocrit 32.6 L Hemoglobin 11.0 L Potassium Level 3.9 Sodium Level 139 Medications Medications Current Medications Miscellaneous Information 1 ea 1 ea NOTE XX ; Start 10/30/16 at 11:00; Stop 11/02 at 10:59 Lactated Ringer's (Lr) 1,000 ml @ 125 mls/hr Q8H IV Last administered on 10:00; Admin Dose 125 MLS/HR; Start 10/30/16 at 16:00 Celecoxib (Celebrex) 200 mg DAILY PO Last administered on 11/01/16 08:42; Admin Dose 200 MG; Start 10/31/16 at 09:00 Tramadol HCl (Ultram) 50 mg Q6 PO Last administered on 11/02/16 06:19; Admin Dose 50 MG; Start 10/30/16 at 12:00; Stop 11/02/16 at 11:59 Oxycodone HCl (Roxicodone) 5 mg Q4H PRN PO PAIN LEVEL 1-3; Start 10/30/16 at 16 :00 Oxycodone HCl (Roxicodone) 10 mg Q4H PRN PO PAIN LEVEL 4-7; Start 10/30/16 at 16:00 Hydromorphone HCl (Dilaudid) 1 mg Q3H PRN IV PAIN LEVEL 8-10; Start 10/30/16 at 16:00 Ondansetron HCl (Zofran Inj) 4 mg Q6H PRN IV NAUSEA AND/OR VOMITING; Start at 16:00 Bisacodyl (Dulcolax Supp) 10 mg Q12H PRN MD CONSTIPATION; Start 10/30/16 at 16: 00 Magnesium Hydroxide (Milk Of Mag) 30 ml BID PRN PO CONSTIPATION Last administered on 11/02/16 06:19; Admin Dose 30 ML; Start 10/30/16 at 16:00 Sodium Biphosphate/ Sodium Phosphate (Fleet Enema) 133 ml DAILY PRN MD CONSTIPATION; Start 10/30/16 at 16:00 Docusate Sodium (Colace) 100 mg BID PO Last administered on 11/01/16 20:17; Admin Dose 100 MG; Start 10/30/16 at 21:00 Diphenhydramine HCl (Benadryl) 25 mg Q6H PRN PO PRURITUS; Start 10/30/16 at 16: 00 Aspirin (Ecotrin) 325 mg BID PO Last administered on 11/01/16 20:17; Admin Dose 325 MG; Start 10/31/16 at 09:00 Pantoprazole (Protonix Tab) 40 mg BID@06,18 PO Last administered on 11/02/16 06 :19; Admin Dose 40 MG; Start 10/30/16 at 18:00 Pregabalin (Lyrica) 50 mg BID PO Last administered on 11/01/16 20:17; Admin Dose 50 MG; Start 10/30/16 at 21:00 Atorvastatin Calcium (Lipitor) 40 mg HS PO Last administered on 11/01/16 20:17 ; Admin Dose 40 MG; Start 10/30/16 at 21:00 Mirtazapine (Remeron) 15 mg HS PO Last administered on 2/2/17at 20:17; Admin Dose 15 MG; Start 10/30/16 at 21:00 Fenofibrate (Tricor) 145 mg DAILY PO Last administered on 11/01/16 08:43; Admin Dose 145 MG; Start 10/31/16 at 09:00 EZETIMIBE (Zetia) 10 mg DAILY PO Last administered on 11/01/16 08:43; Admin Dose 10 MG; Start 10/31/16 at 09:00 OLI ALCANTAR MD Nov 02, 2016 08:25
[2016-11-02] MEDS: ASPIRIN (EC) 325 MG TAB PO SCH (08:43)
[2016-11-02] MEDS: EZETIMIBE 10 MG TAB PO SCH (08:43)
[2016-11-02] MEDS: CELECOXIB 200 MG CAP PO SCH (08:43)
[2016-11-02] MEDS: PREGABALIN 25 MG CAP PO SCH (08:43)
[2016-11-02] MEDS: DOCUSATE SODIUM 100 MG CAP PO SCH (08:43)
[2016-11-02] MEDS: FENOFIBRATE 145 MG TAB PO SCH (08:43)
--- NOTE | 2016-11-02 08:52 | PN ---
Date/Time of Note Date/Time of Note DATE: 11/02/16 TIME: 08:51 Assessment/Plan Lines/Catheters IV Catheter Type (from Nrsg): Saline Lock Mancera in Place (from Nrsg): Yes Assessment/Plan Assessment/Plan Stable POD #3 s/p right TKA -pain meds -OOB with PT -ASA/SCDs -dressing changed -dc planning. Will discharge home today -follow up with Dr. Torres in the office on 11/09/16 Subjective 24 Hr Interval Summary Doing well. No acute overnight events. Mild pain. Progressing well with PT. Would like to go home today. Exam/Review of Systems Vital Signs Vitals Vital Signs Date Time Temp Pulse Resp B/P Pulse Ox O2 Delivery O2 Flow Rate FiO2 11/02/16 07:50 98.2 84 19 128/82 92 11/01/16 08:30 Room Air 10/30/16 20:10 2.0 Intake and Output 11/01/16 11/01/16 11/02/16 15:00 23:00 07:00 Intake Total 780 ml 800 ml Balance 780 ml 800 ml Exam Free Text/Dictation Dressing dry Incision clean, dry, and intact without redness or drainage Thigh soft 5/5 Quadriceps, Tibialis Anterior, EHL, Gastroc, Soleus, Peroneals Normal sensation Palpable DT/PT, CR <2 sec No distal edema Results Result Diagram: 11/02/1644911/02/16 045 EDY ALMANZA PA-C Nov 02, 2016 08:52
--- NOTE | 2016-11-03 08:48 | DS ---
DATE OF ADMISSION: 10/30/2016 DATE OF DISCHARGE: 11/02/2016 CONDITION ON DISCHARGE: Stable. ADMITTING DIAGNOSIS: Right knee osteoarthritis. DISCHARGE DIAGNOSIS: Status post right total knee arthroplasty. PROCEDURE PERFORMED: Right total knee arthroplasty. HOSPITAL COURSE: This is a 71-year-old female who was initially seen in clinic complaining of right knee pain. She had undergone conservative modalities unsuccessfully, and it was thought she would benefit from a right total knee arthroplasty. On 10/30/2016 the patient was admitted and taken to [facility] operating room where she underwent a right total knee arthroplasty. There were no intraoperative complications. The patient tolerated the procedure well. She was taken to the recovery room in st able condition. Pain was well controlled with oral pain medication. She was started on aspirin and SCDs for DVT prophylaxis. She remained hemodynamically stable and neurovascularly intact throughou t her hospital stay. She made progress with physical therapy throughout her hospital course. On po stoperative day 3, it was deemed she was stable for discharge. Prior to discharge the incision was inspected and noted to be clean, dry and intact. Dressing changes were done prior to the patient go ing home. LABORATORY DATA UPON DISCHARGE: Hemoglobin 11.0, hematocrit 32.6. Chemistry panel was within jenny l limits. DISCHARGE MEDICATIONS 1. Aspirin 325 mg. 2. [place] 7.5/325 mg. 3. Lyrica 50 mg. 4. Tramadol 50 mg 5. Protonix 40 mg. Additionally, the patient is to resume all of her normal home medications. DISCHARGE INSTRUCTIONS: The patient will be discharged home in stable condition. She is to resume a normal diet. Activities include weightbearing as tolerated on the right lower extremity. She babita l begin home health physical therapy. She is to resume all her normal home medications. The patien t is to call the office or return to the emergency room for any concerns including increased redness , swelling, drainage, fever or any concerns regarding the operation or site of incision. FOLLOWUP: The patient is to follow up with Dr. Torres in the office on 11/09/2016. Dictated By: EDY SANCHEZ for [facility] COMER/NTS Conf#: [id number] DID#: [id number]
== END 2016-11-02 15:25 | disposition home or self-care (01) | DRG 470 ==
LOC: REC 10:50 → MS1 17:40
PROVIDERS: ADMIT Orthopaedic Surgery; ATTEND Orthopaedic Surgery
PROC: 0SRC0J9 Replacement of Right Knee Joint with Synthetic Substitute, Cemented, Open Approach (ICD-10-PCS; principal; 2016-10-30 13:00)
DX: M17.11 Unilateral primary osteoarthritis, right knee (principal); I10 Essential (primary) hypertension; E78.5 Hyperlipidemia, unspecified; E78.00 Pure hypercholesterolemia, unspecified; I89.0 Lymphedema, not elsewhere classified; Z87.891 Personal history of nicotine dependence; Z88.0 Allergy status to penicillin; Z80.8 Family history of malignant neoplasm of other organs or systems
CPT/HCPCS: 73560; 80048; 81001; 81003; 85014; 85018; 86850; 86900; 86901; 86920; 87081; 87086; 88304; 88311; 97110; 97116; 97162; 97167; 97530; Z7610; C1776; C9290; J0131; J0171; J0697; J0735; J1100; J1885; J2250; J2274; J2370; J2405; J2710; J3010; J3370; J7120

== ENCOUNTER → 2016-11-09 | Outpatient (CLI) | payer MEDICARE, BC ==
[~2016-11-09] MED LIST changes: +ASPI325T32 PO; -ETOMIDATE 20 MG INJ ONE; +HYDR-905 PO; +LYRI25 PO; +OMEP40CA6 PO; +TRAM50TA2 PO
--- NOTE | 2016-11-09 11:48 | RADRPT ---
PROCEDURE: XR right knee. CLINICAL INDICATION: Knee pain. TECHNIQUE: AP and lateral weightbearing views are available for review. COMPARISON: 10/30/2016 FINDINGS: There is a total knee replacement. There is no evidence of loosening of the prosthesis. The osseous structures are normal in mineralization, architecture and alignment No acute fracture or dislocation is seen.No osseous lesions are identified. The soft tissues are unremarkable . IMPRESSION: Unremarkable total knee replacement. RPTAT: HGDB .Ronny Pulido MD, MD Date Time Electronically viewed and signed by .Ronny Pulido MD, MD on 11/09/2016 11:48 .B/
--- NOTE | 2016-11-09 12:22 | HKNOTE ---
DATE OF SERVICE: 11/09/2016 INTERVAL HISTORY: The patient presents today for a followup evaluation of her right knee. She is now 11 days status post right total knee arthroplasty. She is doing well overall. She has only mild pain. She denies any fevers or chills. She is doing home health physical therapy and ambulating with a walker. She presents today for her first postoperative evaluation. PHYSICAL EXAMINATION: On examination today, she is alert and oriented x4, in no acute distress. She is walking with a walker. Exam of the right knee demonstrates the incision to be clean, dry and intact. There is some mild ecchymosis with minimal soft tissue swelling. Range of motion is 0-90 degrees. The compartments are otherwise soft. Neurovascular status is intact distally. IMAGING: Two views of the right knee were obtained today and reviewed by me. They show good fixation of femoral and tibial components. There is no fracture or dislocation identified. ASSESSMENT: Eleven days status post right total knee arthroplasty. DISCUSSION: The patient is continue home health physical therapy. She is to continue aspirin 325 mg twice a day for 6 weeks. We will arrange for her to be in outpatient physical therapy next week. If she develops any increasing pain, redness, fevers or chills, she is to call the office or go to the emergency room. Otherwise, we will see her back in 4 weeks for a repeat evaluation. Dictated By: EDY SANCHEZ for [facility] COMER/CHRIST Conf#: [id number] DID#: [id number] MTDD
== END | disposition home or self-care (01) ==
LOC: HKI 10:25
PROVIDERS: ATTEND Orthopaedic Surgery
DX: Z47.1 Aftercare following joint replacement surgery (principal); Z96.651 Presence of right artificial knee joint
CPT/HCPCS: 73560; G0463

== ENCOUNTER → 2016-12-05 | Outpatient (CLI) | payer MEDICARE, BC | END | disposition home or self-care (01) | LOC: HKI 10:42 | PROVIDERS: ATTEND Orthopaedic Surgery | DX: Z47.1 Aftercare following joint replacement surgery (principal); M17.11 Unilateral primary osteoarthritis, right knee; Z96.651 Presence of right artificial knee joint ==

== ENCOUNTER → 2017-01-16 | Outpatient (CLI) | payer MEDICARE, BC ==
--- NOTE | 2017-01-16 11:40 | RADRPT ---
PROCEDURE: XR right knee. CLINICAL INDICATION: Knee pain. TECHNIQUE: AP weightbearing, PA weightbearing, lateral weightbearing and sunrise views are availab le for review. COMPARISON: 11/09/2016 FINDINGS: There is a total knee replacement. There is no evidence of loosening of the prosthesis. There is no evidence of hardware failure. The osseous structures are normal in mineralization, architecture and alignment No acute fracture or dislocation is seen.No osseous lesions are identified. The soft tiss ues are unremarkable . IMPRESSION: Unremarkable total knee replacement. RPTAT: HGDB .Ronny Pulido MD, MD Date Time Electronically viewed and signed by .Ronny Pulido MD, MD on 01/16/2017 11:40 .B/
== END | disposition home or self-care (01) ==
LOC: HKI 10:51
PROVIDERS: ATTEND Orthopaedic Surgery
DX: Z47.1 Aftercare following joint replacement surgery (principal); Z96.651 Presence of right artificial knee joint; D48.1 Neoplasm of uncertain behavior of connective and other soft tissue